=== PATIENT | male | born 1970 | race Two or more races ===

== ENCOUNTER → 2019-07-26 | Outpatient (CLI) | payer OTHER ==
[~2019-07-26] MED LIST: ALLO100T30 PO; ASCO250T2 PO; ATOR40TA78 PO; CYCL-259 PO; INDO50CA15 PO; LISI5TAB7 PO; METF10007 PO; OMEP20TA62 PO
[2019-07-26 09:30] LABS: BASOPHILS # (AUTO) 0.02 x10^3/uL (0-0.1); BASOPHILS % (AUTO) 0 % (0-1); EOSINOPHILS # (AUTO) 0.22 x10^3/uL (0-0.4); EOSINOPHILS % (AUTO) 5 % (1-7); LYMPHOCYTES # (AUTO) 1.33 x10^3/uL (1-3.4); LYMPHOCYTES % (AUTO) 27 % (22-44); MD NO; MEAN CORPUSCULAR HEMOGLOBIN 30.3 pg (27.5-34.5); MEAN CORPUSCULAR HGB CONC 33.1 g/dL (33.2-36.2); MEAN CORPUSCULAR VOLUME 91.6 fL (81-97); MEAN PLATELET VOLUME 8.7 fL (7.4-10.4); MONOCYTES % (AUTO) 14 % (2-9); NEUTROPHILS # (AUTO) 2.66 x10^3/uL (1.8-6.8); NEUTROPHILS % (AUTO) 54 % (42-75); PLATELET COUNT 204 x10^3/uL (130-400); RED BLOOD COUNT 4.89 x10^6/uL (4.38-5.82); RED CELL DISTRIBUTION WIDTH 14.3 % (9.4-14.8)
[2019-07-26 09:36] LABS: INTERNATIONAL NORMALIZED RATIO 0.95 (0.93-1.1)
[2019-07-26 09:39] LABS: ALBUMIN 3.7 g/dL (3.4-5.0); ANION GAP 6 mmol/L (5-15); CALCIUM 8.2 mg/dL (8.5-10.1); CHLORIDE 111 mmol/L (98-107)
[2019-07-26 09:43] LABS: ALANINE AMINOTRANSFERASE 147 U/L (12-78); ALKALINE PHOSPHATASE 79 U/L (45-117); BILIRUBIN,TOTAL 0.5 mg/dL (0.2-1.0); CREATININE 0.84 mg/dL (0.7-1.3); TOTAL PROTEIN 6.9 g/dL (6.4-8.2)
[2019-07-26 09:49] LABS: MICROSCOPIC NOT IND
[2019-07-26 09:53] LABS: CULTURE INDICATED? NO
== END | disposition home or self-care (01) ==
LOC: STAR 08:24
PROVIDERS: ATTEND Neurological Surgery
DX: Z01.818 Encounter for other preprocedural examination (principal); M54.16 Radiculopathy, lumbar region; M51.26 Other intervertebral disc displacement, lumbar region
CPT/HCPCS: 36415; 71046; 80053; 81003; 85025; 85610; 85730; 93005

== ENCOUNTER 2019-08-02 06:56 | Day surgery (SDC) | payer OTHER ==
[~2019-08-02] VITALS: Ht 175.3 cm; Wt 125.0 kg
[2019-08-02] MEDS ORDERED: FENTANYL PF 250 MCG/5ML ONE (07:54)
[2019-08-02] MEDS ORDERED: MIDAZOLAM 1 MG/ML, 2ML ONE (07:54)
[2019-08-02 08:14] VITALS: BP 148/100
[2019-08-02] MEDS ORDERED: LACTATED RINGERS 1,000 ML IV SCH (08:17)
[2019-08-02] MEDS ORDERED: PROPOFOL 10 MG/ML, 20ML ONE (09:14)
[2019-08-02] MEDS ORDERED: SUCCINYLCHOLINE 20 MG/ML, 10ML ONE (09:14)
[2019-08-02] MEDS ORDERED: ONDANSETRON 2MG/ML, 2ML ONE (09:14)
[2019-08-02] MEDS ORDERED: DEXAMETHASONE 4 MG/ML, 1ML ONE (09:14)
[2019-08-02] MEDS ORDERED: SUGAMMADEX 200 MG/2 ML IVPush ONE (09:14)
[2019-08-02] MEDS ORDERED: CEFAZOLIN 1,000 MG ONE (09:14)
[2019-08-02] MEDS ORDERED: PROMETHAZINE 25 MG/ML, 1ML IV PRN (10:00)
[2019-08-02] MEDS ORDERED: KETOROLAC 30 MG/1 ML IV PRN (10:00)
[2019-08-02] MEDS ORDERED: ALBUTEROL SULFATE 2.5 MG/3 ML NPPB PRN (10:00)
[2019-08-02] MEDS ORDERED: LABETALOL 5MG/ML, 20ML IV PRN (10:00)
[2019-08-02] MEDS ORDERED: ONDANSETRON 2MG/ML, 2ML IVPush PRN (10:00)
[2019-08-02] MEDS ORDERED: METOCLOPRAMIDE 5 MG/ML, 2ML IV PRN (10:00)
[2019-08-02] MEDS ORDERED: MEPERIDINE/PF 25MG/0.5ML IVPush PRN (10:00)
[2019-08-02] MEDS ORDERED: ACETAMINOPHEN 650 MG/20.3 ML UDC ONE (10:38)
[2019-08-02] MEDS ORDERED: FENTANYL PF 100 MCG/2ML ONE (10:39)
[2019-08-02] MEDS ORDERED: OXYcodone 5 MG/5 ML ORAL.SOL UDC ONE ×2 (10:39→11:07)
[2019-08-02] MEDS: OXYcodone 5 MG/5 ML ORAL.SOL UDC PO PRN ×2 (10:42→11:08)
[2019-08-02] MEDS: FENTANYL PF 100 MCG/2ML IV PRN ×4 (10:43→11:08)
[2019-08-02] MEDS ORDERED: METHOCARBAMOL 1,000 MG in DEXTROSE 5% 100 ML IV STA (10:44)
[2019-08-02] MEDS ORDERED: ACETAMINOPHEN 650 MG/20.3 ML UDC PO PRN (11:00)
[2019-08-02] MEDS ORDERED: HYDROmorphone 1 MG/ML, 1ML INJ ONE (11:07)
[2019-08-02] MEDS: HYDROmorphone 1 MG/ML, 1ML INJ IV PRN ×2 (11:16→11:33)
[2019-08-02] MEDS ORDERED: hydrALAzine 20 MG/ML, 1ML ONE (11:18)
[2019-08-02] MEDS: hydrALAzine 20 MG/ML, 1ML IV PRN ×2 (11:20→11:40)
== END 2019-08-02 14:00 | disposition home or self-care (01) ==
LOC: OR 06:56
PROVIDERS: ATTEND Neurological Surgery
DX: M51.16 Intervertebral disc disorders with radiculopathy, lumbar region (principal); M48.061 Spinal stenosis, lumbar region without neurogenic claudication; E66.01 Morbid (severe) obesity due to excess calories; G47.33 Obstructive sleep apnea (adult) (pediatric); M1A.9XX0 Chronic gout, unspecified, without tophus (tophi); E11.9 Type 2 diabetes mellitus without complications; K21.9 Gastro-esophageal reflux disease without esophagitis; Z68.41 Body mass index [BMI] 40.0-44.9, adult; Z79.1 Long term (current) use of non-steroidal anti-inflammatories (NSAID); Z79.84 Long term (current) use of oral hypoglycemic drugs; Z79.52 Long term (current) use of systemic steroids; Z79.899 Other long term (current) drug therapy; Z83.3 Family history of diabetes mellitus
CPT/HCPCS: 63030; 72100; 82962; J0330; J0360; J0690; J1100; J1170; J2250; J2405; J2704; J2800; J3010; J7120; 93005